=== PATIENT | female | born 1975 ===

== ENCOUNTER 2018-02-28 20:20 | Emergency (ER) | payer SELFPAY ==
[2018-03-01 04:26] VITALS: BP 127/73; PULSE 77
== END 2018-02-28 23:55 | disposition home or self-care (01) ==
LOC: H.EROB2 20:20
DX: O47.1 False labor at or after 37 completed weeks of gestation (principal); O26.93 Pregnancy related conditions, unspecified, third trimester; R10.2 Pelvic and perineal pain; Z3A.38 38 weeks gestation of pregnancy

== ENCOUNTER 2018-03-01 12:56 | Inpatient (IN) | payer SELFPAY ==
[2018-03-01 13:59] LABS: BASO # 0.1 K/uL (0.0-0.2); BASO % 0.7 % (0.0-2.0); EOS # 0.2 K/uL (0.0-0.7); HEMOGLOBIN 11.2 g/dL (12.0-16.0); LYMPH # 1.5 K/uL (1.0-4.3); MEAN CELL VOLUME 78.8 fl (81.0-99.0); MEAN CORPUSCULAR HEMOGLOBIN 26.7 pg (27.0-31.0); MEAN CORPUSCULAR HGB CONC 33.9 g/dL (33.0-37.0); MEAN PLATELET VOLUME 7.6 fl (7.2-11.7); MONO # 0.6 K/uL (0.0-0.8); MONO % 7.5 % (0.0-10.0); NEUT # 5.5 K/uL (1.8-7.0); NEUT % 70.8 % (50.0-75.0); NRBC % 0.1 % (0.0-0.0); RBC 4.2 Mil/uL (3.80-5.20); RED CELL DISTRIBUTION WIDTH 16.7 % (11.5-14.5); WHITE BLOOD COUNT 7.7 K/uL (4.8-10.8)
[2018-03-01 19:32] VITALS: BMI 31.1
[2018-03-01] MEDS ORDERED: Oxytocin 30 units/LR 500ML 30 U/500 ML BAG IV SCH (19:45)
[2018-03-01] MEDS ORDERED: Lactated Ringer's 1,000 ML IV SCH ×2 (19:45)
[2018-03-01] MEDS ORDERED: Oxytocin 30 units/LR 500ML 30 U/500 ML BAG IV ONE (22:26)
[2018-03-02] MEDS ORDERED: Lidocaine 2% Inj (20ml) ONE (06:01)
[2018-03-02] MEDS ORDERED: Oxycodone/Acetaminophen 5/325 mg Tab PO PRN ×4 (07:34→12:14)
[2018-03-02] MEDS ORDERED: Multivitamin With Minerals Tab PO SCH (09:00)
[2018-03-02] MEDS ORDERED: Prenatal Multivit/Folic Acid/Iron Tab PO SCH (09:00)
[2018-03-02 15:44] LABS: HEMOGLOBIN 10.1 g/dL (12.0-16.0); MEAN CELL VOLUME 79.3 fl (81.0-99.0); MEAN CORPUSCULAR HEMOGLOBIN 26.3 pg (27.0-31.0); MEAN CORPUSCULAR HGB CONC 33.2 g/dL (33.0-37.0); RBC 3.83 Mil/uL (3.80-5.20); RED CELL DISTRIBUTION WIDTH 16.9 % (11.5-14.5)
--- NOTE | 2018-03-02 17:01 | OBDS ---
DELIVERY PERSONNEL Delivery Doctor: Andrew Chase MD Wound/Ostomy Nurse: Karyn Aranda RN, Sadiq RN, Julisa Resident: guille Huddleston MATERNAL INFORMATION Delivery Anesthesia: Local Medications in Delivery: Pitocin Estimated Blood Loss (ml): 300 Placenta Cultured: No Maternal Complications: None Provider Comments: Normal spontaneous vaginal delivery. Viable infant female with Apgars of 9 and 9 at one and 5 minutes respectively. delivered vi a position. Loose nuchal cord 1 reduced. Placenta spontaneously. Laceration repaired, as above. Lacy connor firm and appropriately hemostatic following delivery. Patient tolerated delivery and repair well. No complications. Estimated blood loss 300 mL. LABOR SUMMARY EDC: 03/11/2018 00:00 No. Babies in Womb: 1 Attempted: No Labor Anesthesia: Local LABOR INFORMATION Reason for Induction: Not Applicable Onset of Labor: 03/01/2018 21:00 Complete Dilatation: 03/02/2018 06:00 Oxytocin: Augmentation Group B Beta Strep: Negative Antibiotics # of Doses: N/A Steroids Given: None Reason Steroids Not Administered: Not Applicable MEMBRANES Membranes Rupture Method: Spontaneous Rupture of Membranes: 03/01/2018 10:00 Length of Rupture (hrs): 21.32 Amniotic Fluid Color: Light Meconium (Annotations: As per Dr. Mesa telephone Report ) Amniotic Fluid Amount: Moderate Amniotic Fluid Odor: None STAGES OF LABOR Stage 1 hrs: 9 Stage 1 min: 0 Stage 2 hrs: 1 Stage 2 min: 19 Stage 3 hrs: 0 Stage 3 min: 6 Total Time in Labor hrs: 10 Total Time in Labor min: 25 VAGINAL DELIVERY Episiotomy: None Laceration Extension: First Degree Laceration Type: Vaginal Laceration Repair Note: First-degree midline perineal laceration. Area infiltrated with 1% lidocaine . Laceration repaired with a 2.0. No complication. Patient tolerated well. Initial Vag Sponge Count: 5 Final Vag Sponge Count: 5 Initial Vag Sharps Count: 2 Final Vag Sharps Count: 2 Sponge Count Correct: Yes Sharps Count Correct: Yes BABY A INFORMATION Delivery Date/Time: 03/02/2018 07:19 Method of Delivery: Vaginal Born in Route : No : N/A Forceps: N/A Vacuum Extraction: N/A Shoulder Dystocia : No SHOULDER DYSTOCIA BABY A Delivery Date/Time: 03/02/2018 07:19 PRESENTATION/POSITION BABY A Presentation: Cephalic Cephalic Presentation: Vertex Breech Presentation: N/A PLACENTA INFORMATION BABY A Placenta Delivery Time : 03/02/2018 07:25 Placenta Method of Delivery: Spontaneous Placenta Status: Delivered SCORES BABY A Heart Rate 1 min: >100 bpm Resp Effort 1 min: Good Cry Reflex Irritability 1 min: Cough or Sneeze or Pulls Away Muscle Tone 1 min: Active Motion Color 1 min: Body [place], Extremities Blue Resuscitation Effort 1 min: Tactile Stimulation SCORE 1 MIN: 9 Heart Rate 5 min: >100 bpm Resp Effort 5 min: Good Cry Reflex Irritability 5 min: Cough or Sneeze or Pulls Away Muscle Tone 5 min: Active Motion Color 5 min: Body [place], Extremities Blue Resuscitation Effort 5 min: N/A SCORE 5 MIN: 9 INFANT INFORMATION BABY A Gestational Age at Delivery: 38+5 Gestational Status: Term Outcome : Liveborn Infant Condition : Stable Infant Sex: Female IDENTIFICATION/MEDS BABY A ID Band Number: [id number] ID Band Location: Left Leg; Left Arm WEIGHT/LENGTH BABY A Infant Birthweight (gms): 3015 Weight (lb): 6 Infant Weight (oz): 10 Length Inches: 20" CORD INFORMATION BABY A No. Cord Vessels: 3 Nuchal Cord : Around Neck x1, Loose Nuchal Cord Other: no True Knot: no Infant Cord pH Baby Arterial: no Cord pH Baby Venous: no Cord Blood Taken: Yes Infant Suction: Mouth; Nose ASSESSMENT BABY A Complications: None Physical Findings at Delivery: Within Normal Limits Infant Respirations: Appears Normal Care By: Román RN, Julisa RN/Mica Diaz RN Transferred To: Remains with Mother
--- NOTE | 2018-03-02 17:07 | OBADHP ---
Datetime: 03/01/2018 17:01 Admit Comment, IP Provider: 42-year-old 001 at 38 weeks and 5 days gestational age transferred from delivery from clinic with spontaneous rupture of membranes confirmed with sterile speculum exam . Patient reports occasional contraction, no vaginal bleeding. Patient reports good movement. Past medical history hypothyroidism Past surgical history none Medications Vitamins, levothyroxine No known drug allergies Obstetrical history normal spontaneous vaginal delivery 1 Social history no tobacco, no drugs, alcohol Assessment/plan: Spontaneous rupture of membranes, both maternal well-being and well-being reassuring at this time. We'll continue observation and start Pitocin augmentation if indicated Pelvic Type - PN: Adequate Extremities - PN: Normal Abdomen - PN: Normal Back - PN: Normal Breast - PN: Normal Lungs - PN: Normal Heart - PN: Normal Thyroid - PN: Normal Neurologic - PN: Normal HEENT - PN: Normal General - PN: Normal Membranes, Provider: Ruptured Contraction Comments Provider: Irregular IP Hx Assessment: The History has been Reviewed and is Current Vital Signs Provider: Reviewed; Within Normal Limits IP Chief Complaint: Suspected ruptured membranes Dilatation, Provider: 0 Effacement, Provider: 50 Station, Provider: -3 Genitourinary Exam: Normal DTRs - PN: Normal EGA AdmitDate IP: 38.4 IP Adm Impression: Term, intrauterine ; No Active Labor; Ruptured Membranes IP Admit Plan: Initiate labor augmentation protocol; Discharge home Datetime: 02/28/2018 23:28 FHR - Baseline A Provider: 130 Comments, ACOG Physical Exam: Vaginal discharge was noted on exam No pulling GBS negative Next Appt with [facility]: 03/01/18 (Annotations: Data stored by CPN on behalf of user) Pool Provider: Negative Nitrazine Provider: Negative NICHD Variability Prov Fetus A: Moderate 6-25bpm NICHD Accel Fetus A IP Provider: [id number] FHR Category Provider Fetus A: Category I NICHD Decel Fetus A IP Provider: None
[2018-03-03] MEDS: Multivitamin With Minerals Tab PO SCH (08:26)
--- NOTE | 2018-03-04 08:41 | OBPPN ---
Datetime: 03/04/2018 07:38 PP Pain Prov: Within normal limits PP Nausea Prov: Denies PP Flatus Prov: Yes PP BM Prov: Yes PP Heart Prov: Normal PP Lungs Prov: Normal PP Abdomen/Uterus Prov: Normal PP Lochia Prov: Normal PP CVA Tenderness Prov: Normal PP Extremities Prov: Normal PP Progress Prov: Normal PP Impression Prov: Normal progression PP Plan Prov: Discharge PP Progress Note Prov: 42 y/o female now on PPD 2 seen and examined at bedside this morning. No overnight events. Reports pain is controlled with pain medications. Pt reports passing gas per re ctum and + BM yesterday. Voiding freely w/o blood noted. Ambulating well w/o dizziness. Lochia is sim ilar to menses volume. Pt is the baby w/o difficulty. Denies nausea, vomiting, fever, c hills, chest pain or calf pain. Physical Exam: General: A_O, resting comfortably in bed, NAD HEENT: oral mucosa moist. Lungs: CTA B/L, no wheezing, rhonchi or rales CVS: RRR, S1, S2 ABD: ND, +BS, firm fundus @ umbilical level. Soft, appropriate TTP. EXT: no edema, negative Tina's sign, Neuro/psych: AAOX3. Assessment: 42 y/o female now doing well on PPD 2 Plan: Discharge to home today PNV 1 PO qdaily Ibuprofen 600 mg 1 tab po prn q6 if moderate/severe pain Colace 100 mg PO daily Encourage . Ambulation with caution,nothing per vaginal, no heavy lifting, if excessive bleeding or fever w/o relief from pain medication go to ED. Follow up with your doctor in 6 weeks for visit. Sultan Lopes, PGY-1 Case d/w on-call OB Hospitalist Dr. Tinoco. Attending Note: Pt was d/w the resident and I agree with the above. Vital Signs Provider PP: Reviewed (Annotations: Data stored by CPN on behalf of user)
--- NOTE | 2018-03-04 08:43 | OBDCSUM ---
Datetime: 03/04/2018 07:41 Discharged to, Provider: Home Follow up at, Provider: your doctor Disch Instr Activity: May be up to bathroom; May be up for meals; May Shower Disch Instr Diet: Regular Discharge Instructions, Provider: Routine instructions given Discharge Diagnosis, Provider: Term Delivered Discharge Time: 03/04/2018 09:00 Follow up in weeks, Provider: in 6 weeks Disch Referrals: None Contraception discussed, Prov: Yes Disch Activity Restrictions: No exercising; No lifting; No sexual activity; Nothing in vagina - Inte rcourse, tampons, douche Discharge Comment, Provider: Discharge to home today Take vitamin daily Take ibuprofen 600 mg 1 tab every 6 hours as needed for pain Take colace 100 mg daily for constipation as needed Encourage . Ambulation with caution,nothing per vaginal, no heavy lifting, if excessive bleeding or fever w/o relief from pain medications go to ED. Follow up at your clinic in 6 weeks for visit. Contraception after Delivery: Undecided
[2018-03-04] MEDS: Multivitamin With Minerals Tab PO SCH (08:56)
[2018-03-04 16:18] VITALS: BP 124/78; PULSE 71; RESP 20; TEMP 97.9; O2SAT 99
--- NOTE | 2018-03-05 11:14 | OBPPN ---
Datetime: 03/03/2018 07:13 PP Pain Prov: Within normal limits PP Nausea Prov: Denies PP Flatus Prov: No PP BM Prov: No PP Heart Prov: Normal PP Lungs Prov: Normal PP Abdomen/Uterus Prov: Normal PP Lochia Prov: Normal PP CVA Tenderness Prov: Normal PP Extremities Prov: Normal PP Progress Prov: Normal PP Impression Prov: Normal progression PP Plan Prov: Continue present management PP Progress Note Prov: S: 42 YO , PPD1, s/p NVD on 03/02/18, GA 38.4. Pt is seen and examined by bedside this AM. No acute event overnight. Pt is endorsing abdominal pain is well controlled. Ambulat ing, Bleeding has improved since delivery. Tolerating PO diet. Denies Passing gas or BM. Denies chest pain, dyspnea, n/v, fever/chills, diarrhea, nausea/vomiting, and calf pain. O: VS: wnl, afebrile GEN: Awake, alert and baby girl by bedside. Sleepy HEENT: EOMI, moist mucosa. LUNGS: CTA B/L, no wheezing, rhonci, or rales CVS: RRR, S1, S2 no murmurs ABD: ND, +BS, soft abdomen, firm fundus, below umbilicus. EXT: No edema, neg calf tenderness NEURO/PSYCHI: AAOx3, no grossly focal deficit, preserved affect and mood. Assessment/Plan: 42 YO , PPD1, s/p NVD on 03/02/18, gave to a baby girl. Pt remains afebr ile, tolerating pain with medication, good PO intake and urinating without any difficulties. Doing we ll on PPD1. -C/w regular diet as tolerated. -OOB with caution SCDs for DVT prophylaxis -Ibuprofen 600 mg/Percocet for pain prn -C/w Colace 100mg PO BID PRN -Encourage and ambulation. Glendy Kendall, PGY-1 Attending Note: Pt was seen and discussed with resident and I agree with the above. IP PP Procedures: None Vital Signs Provider PP: Reviewed; Within Normal Limits
== END 2018-03-04 12:17 | disposition home or self-care (01) | DRG 775 ==
LOC: H.L&D 13:16 → H.OB/GYN 03-02 12:00
PROVIDERS: ADMIT Obstetrics & Gynecology; ATTEND Obstetrics & Gynecology
PROC: 4A1HXCZ Monitoring of Products of Conception, Cardiac Rate, External Approach (ICD-10-PCS; 2018-03-01)
PROC: 0HQ9XZZ Repair Perineum Skin, External Approach (ICD-10-PCS; principal; 2018-03-02)
PROC: 10E0XZZ Delivery of Products of Conception, External Approach (ICD-10-PCS; 2018-03-02)
DX: O42.02 Full-term premature rupture of membranes, onset of labor within 24 hours of rupture (principal); Z37.0 Single live birth; Z3A.38 38 weeks gestation of pregnancy; O69.81X0 Labor and delivery complicated by cord around neck, without compression, not applicable or unspecified; O70.0 First degree perineal laceration during delivery